=== PATIENT | male | born 1985 | race African-American/Black ===

== ENCOUNTER 2016-07-08 13:40 | Emergency (ER) | payer OTHER ==
[~2016-07-08] VITALS: Ht 175.3 cm; Wt 107.9 kg
[2016-07-08] MEDS ORDERED: TESSALON200 MG PO (16:06)
[2016-07-08] MEDS ORDERED: AMOXICILLIN500 MG PO (16:06)
[2016-07-08] MEDS ORDERED: FLONASE16 G1 BOTH NARES (16:06)
[2016-07-08] MEDS ORDERED: NAPROSYN500 MG PO (16:06)
[2016-07-08 16:27] VITALS: BP 142/101
== END 2016-07-08 16:41 | disposition home or self-care (01) ==
LOC: EME 13:40
DX: H66.93 Otitis media, unspecified, bilateral (principal); J30.2 Other seasonal allergic rhinitis
CPT/HCPCS: 99281; 99283; J1885